=== PATIENT | male | born 1960 | race Caucasian/White ===

== ENCOUNTER 2020-07-13 18:57 | Inpatient (IN) ==
[2020-07-13] MEDS ORDERED: ONDANSETRON 4 MG/2 ML VIAL ONE (19:52)
[2020-07-13] MEDS ORDERED: ONDANSETRON 4 MG/2 ML VIAL IV STA (20:05)
[2020-07-13] MEDS ORDERED: SODIUM CHLORIDE 0.9% 1,000 ML IV STA ×2 (20:05→21:33)
[2020-07-13] MEDS ORDERED: DICYCLOMINE 20 MG/2 ML AMP IM ONE (20:05)
[2020-07-13] MEDS ORDERED: PANTOPRAZOLE 40 MG VIAL IV STA (20:05)
[2020-07-13 20:13] LABS: Basophils # 0.1 10*3/uL (0.0-0.2); Basophils % 0.5 % (0.0-0.8); Eosinophils % 0.1 % (0.00-10.9); Hematocrit 47.5 VOL% (42.0-52.0); Immature Granulocytes % 0.5 %; Immature Granulocytes Absolute 0.05 #; Lymphocytes # 0.6 10*3/uL (1.4-4.0); Lymphocytes % 6.2 % (21.2-54.2); Mean Corpuscular HGB Conc 33.7 GM/DL (32-36); Mean Corpuscular Volume 103.5 FL (87-102); Mean Platelet Volume 9.8 FL (9.6-12.0); Monocytes % 6.6 % (1.7-12.7); Neutrophils % 86.1 % (38.7-73.9); Platelet Count 138 T/CUMM (130-400); Red Blood Count 4.59 MC/CUMM (3.8-5.5); Red Cell Distribution Width 12.7 % (9.3-17.3)
[2020-07-13 20:33] LABS: Alanine Aminotransferase 124 U/L (16-61); Albumin 3.7 G/DL (3.4-5.0); Alkaline Phosphatase 145 U/L (45-117); Amylase 44 U/L (25-115); Aspartate Amino Transferase 153 U/L (0-37); Blood Urea Nitrogen 16 MG/DL (7-18); Calcium 8.6 MG/DL (8.5-10.1); Carbon Dioxide 21 MMOL/L (21-32); Estimated Glom Filtration Rate 93 ML/MIN; Glucose 106 MG/DL (74-106); Osmolality,Calculated 277.5 MOS/KG (273-304); Potassium 4.3 MMOL/L (3.5-5.1); Sodium 139 MMOL/L (136-145); Total Protein 6.9 G/DL (6.4-8.3); Troponin I 0.075 NG/ML (0.00-0.045)
[2020-07-13] MEDS ORDERED: PROMETHAZINE 25 MG/1 ML VIAL ONE (21:26)
[2020-07-13] MEDS ORDERED: VANCOMYCIN INJ 1,000 MG in SODIUM CHLORIDE 0.9% 250 ML IV STA (21:34)
[2020-07-13] MEDS ORDERED: PROMETHAZINE 25 MG/1 ML VIAL IM STA (21:36)
[2020-07-13 22:34] LABS: Hepatitis B Core IgM Quant 0.49 Index; Hepatitis B Surface Ag Quant 0.18 Index; Hepatitis B Surface Ag Result Non-Reactive (NonReactive); Hepatitis C Virus Ab Quant 0.04 Index; Hepatitis C Virus Ab Result Non-Reactive (NonReactive)
[2020-07-13] MEDS ORDERED: LABETALOL 20 MG/4 ML SYRINGE IV STA (22:46)
[2020-07-13] MEDS ORDERED: LABETALOL 20 MG/4 ML SYRINGE IV ONE (22:46)
[2020-07-13 23:16] LABS: Bacteria,Urine Occasional /HPF (Few); Bilirubin,Urine Negative (Negative); Blood, Urine Negative (Negative); Glucose,Urine (UA) Negative (Negative); Granular Casts,Urine 2 /LPF (0-1); Hyaline Casts,Urine 14 /LPF (0-3); Ketones,Urine 20 mg/dL (Negative); Mucus,Urine Occasional /LPF (Occasional); Nitrite,Urine Negative (Negative); Protein,Urine 100 MG/DL; RBC,Urine 2 /HPF (0-4); Renal Epithelial Cells,Urine Occasional /HPF (<1); Squamous Epithelial Cell,Urine Occasional /HPF (0-10); Urine Appearance CLEAR (Clear); Urine Color Yellow (Yellow); Urine Specific Gravity 1.024 (1.001-1.035); Urine Urobilinogen < 2.0 EU/DL (0.2-1.0); WBC,Urine 2 /HPF (0-6)
[2020-07-14] MEDS ORDERED: ENOXAPARIN 100 MG/ML SYRINGE SUBCUT STA (00:03)
[2020-07-14] MEDS ORDERED: FUROSEMIDE 40 MG/4 ML VIAL IV STA (00:15)
[2020-07-14] MEDS ORDERED: MAGNESIUM SULF RIDER 2 GM in PREMIX 1 EACH IV STA (00:19)
[2020-07-14] MEDS ORDERED: ONDANSETRON 4 MG/2 ML VIAL IV PRN (00:47)
[2020-07-14] MEDS ORDERED: PROMETHAZINE INJ 25 MG in SODIUM CHLORIDE 0.9% 50 ML IV PRN (00:48)
[2020-07-14] MEDS ORDERED: ALBUTEROL 2.5 MG/3 ML NEB RESP TX PRN (00:49)
[2020-07-14] MEDS ORDERED: ALBUTEROL/IPRATROPIUM 3 ML NEB RESP TX PRN (00:49)
[2020-07-14 00:50] LABS: Troponin I 0.154 NG/ML (0.00-0.045)
[2020-07-14] MEDS ORDERED: LORazepam 2 MG/1 ML VIAL IV PRN (00:55)
[2020-07-14] MEDS ORDERED: DEXTROSE 50% 25 GM/50 ML VIAL IV PRN (01:35)
[2020-07-14] MEDS ORDERED: GLUCAGON 1 MG VIAL IM PRN (01:35)
[2020-07-14] MEDS ORDERED: MORPHINE 4 MG/1 ML VIAL IV PRN (01:35)
[2020-07-14] MEDS ORDERED: NITROGLYCERIN SL 0.4 MG TABLET SL PRN (01:41)
[2020-07-14] MEDS: ZALEPLON 5 MG CAPSULE PO PRN ×2 (02:24→21:31)
[2020-07-14] MEDS: LEVOFLOXACIN INJ 750 MG in PREMIX 1 EACH IV SCH (02:24)
[2020-07-14 02:59] LABS: Basophils % 0.3 % (0.0-0.8); Hematocrit 45.5 VOL% (42.0-52.0); Hemoglobin 15.5 GM/DL (14.0-18.0); Immature Granulocytes % 0.2 %; Immature Granulocytes Absolute 0.02 #; Lymphocytes # 0.3 10*3/uL (1.4-4.0); Mean Corpuscular HGB Conc 34.1 GM/DL (32-36); Mean Corpuscular Volume 102.5 FL (87-102); Mean Platelet Volume 10.2 FL (9.6-12.0); Monocytes % 7.4 % (1.7-12.7); Neutrophils % 89.1 % (38.7-73.9); Platelet Count 102 T/CUMM (130-400); Red Blood Count 4.44 MC/CUMM (3.8-5.5); Red Cell Distribution Width 12.7 % (9.3-17.3); White Blood Count 9.3 T/CUMM (4-12)
[2020-07-14 03:30] LABS: Albumin 3.2 G/DL (3.4-5.0); Bilirubin,Total 1.8 MG/DL (0.2-1.0); Calcium 7.5 MG/DL (8.5-10.1); Osmolality,Calculated 283.4 MOS/KG (273-304); Potassium 4.2 MMOL/L (3.5-5.1); Risk Ratio 1.57; Thyroid Stimulating Hormone 5.53 uIU/ml (0.358-3.74); Total Protein 6.1 G/DL (6.4-8.3); VLDL CHOLESTEROL 13.6 MG/DL
[2020-07-14 03:37] LABS: Lymphocytes 2 % (20-55); Segmented Neutrophils 93 % (50-85); Total Cells Counted 100
[2020-07-14 03:38] LABS: Macrocytosis 1+; Platelet Estimate Decreased
[2020-07-14] MEDS: LORazepam 2 MG/1 ML VIAL IV PRN (03:43)
[2020-07-14] MEDS: PANTOPRAZOLE 40 MG VIAL IV SCH (09:18)
[2020-07-14] MEDS: METOPROLOL TARTRATE 25 MG TABLET PO SCH ×3 (11:25→21:31)
[2020-07-14] MEDS: ENOXAPARIN 80 MG/0.8 ML SYRINGE SUBCUT SCH (12:30)
[2020-07-14] MEDS: FUROSEMIDE 40 MG/4 ML VIAL IV SCH (15:12)
[2020-07-14] MEDS: chlordiazePOXIDE 25 MG CAPSULE PO SCH ×2 (16:19→21:31)
[2020-07-15] MEDS: LEVOFLOXACIN INJ 750 MG in PREMIX 1 EACH IV SCH (00:51)
[2020-07-15] MEDS: ENOXAPARIN 80 MG/0.8 ML SYRINGE SUBCUT SCH ×2 (00:51→13:15)
[2020-07-15] MEDS: LORazepam 2 MG/1 ML VIAL IV PRN (00:55)
[2020-07-15 06:26] LABS: Basophils % 0.2 % (0.0-0.8); Eosinophils % 0.2 % (0.00-10.9); Hematocrit 48.8 VOL% (42.0-52.0); Hemoglobin 16.1 GM/DL (14.0-18.0); Immature Granulocytes % 0.5 %; Immature Granulocytes Absolute 0.07 #; Lymphocytes # 1.4 10*3/uL (1.4-4.0); Lymphocytes % 10.7 % (21.2-54.2); Mean Corpuscular Volume 105.9 FL (87-102); Mean Platelet Volume 10.2 FL (9.6-12.0); Monocytes % 8.8 % (1.7-12.7); Neutrophils % 79.6 % (38.7-73.9); Platelet Count 108 T/CUMM (130-400); Red Blood Count 4.61 MC/CUMM (3.8-5.5); Red Cell Distribution Width 12.7 % (9.3-17.3); White Blood Count 12.9 T/CUMM (4-12)
[2020-07-15 07:04] LABS: Albumin 3.1 G/DL (3.4-5.0); Calcium 7.9 MG/DL (8.5-10.1); Osmolality,Calculated 283.5 MOS/KG (273-304); Potassium 4.3 MMOL/L (3.5-5.1)
[2020-07-15 07:10] LABS: Free T4 (Free Thyroxine) 1.02 NG/DL (0.76-1.46)
[2020-07-15] MEDS ORDERED: LORazepam 2 MG/1 ML VIAL IV ONE ×2 (08:13→08:20)
[2020-07-15] MEDS ORDERED: FOLIC ACID 0.4 MG TABLET PO SCH (09:00)
[2020-07-15] MEDS ORDERED: THIAMINE 100 MG TABLET PO SCH (09:00)
[2020-07-15] MEDS: FUROSEMIDE 40 MG/4 ML VIAL IV SCH (09:17)
[2020-07-15] MEDS: chlordiazePOXIDE 25 MG CAPSULE PO SCH ×4 (09:17→20:40)
[2020-07-15] MEDS: METOPROLOL TARTRATE 25 MG TABLET PO SCH ×3 (09:18→20:40)
[2020-07-15] MEDS: PANTOPRAZOLE 40 MG VIAL IV SCH (09:18)
[2020-07-15] MEDS: THIAMINE INJ 100 MG, FOLIC ACID INJ 1 MG, MULTIVITAMIN INJ 10 ML in SODIUM CHLORIDE 0.9... IV SCH (09:20)
[2020-07-15] MEDS: DEXMEDETOMIDINE 200 MCG in SODIUM CHLORIDE 0.9% 48 ML IV PRN ×3 (10:00→23:50)
[2020-07-16] MEDS: ENOXAPARIN 80 MG/0.8 ML SYRINGE SUBCUT SCH (00:56)
[2020-07-16] MEDS: METOPROLOL TARTRATE 25 MG TABLET PO SCH ×3 (08:18→20:25)
[2020-07-16] MEDS: THIAMINE INJ 100 MG, FOLIC ACID INJ 1 MG, MULTIVITAMIN INJ 10 ML in SODIUM CHLORIDE 0.9... IV SCH (08:36)
[2020-07-16] MEDS: PANTOPRAZOLE 40 MG VIAL IV SCH (08:37)
[2020-07-16] MEDS: APIXABAN 5 MG TABLET PO SCH ×2 (08:40→20:25)
[2020-07-16] MEDS: ASPIRIN CHEW 81 MG TABLET PO SCH (08:40)
[2020-07-16] MEDS: chlordiazePOXIDE 25 MG CAPSULE PO SCH ×4 (08:40→20:25)
[2020-07-16] MEDS: DEXMEDETOMIDINE 200 MCG in SODIUM CHLORIDE 0.9% 48 ML IV PRN (11:23)
[2020-07-16] MEDS: cefTRIAXone 1,000 MG in SYRINGE 1 EACH IV SCH ×2 (11:59→12:01)
[2020-07-16] MEDS: AZITHROMYCIN 250 MG TABLET PO SCH (13:36)
[2020-07-16 13:38] LABS: Bacteria,Urine Occasional /HPF (Few); Bilirubin,Urine Negative (Negative); Blood, Urine Negative (Negative); Glucose,Urine (UA) Negative (Negative); Ketones,Urine Negative (Negative); Mucus,Urine Occasional /LPF (Occasional); Nitrite,Urine Negative (Negative); Protein,Urine Negative; RBC,Urine <1 /HPF (0-4); Squamous Epithelial Cell,Urine Occasional /HPF (0-10); Urine Appearance CLEAR (Clear); Urine Color Yellow (Yellow); Urine Specific Gravity 1.014 (1.001-1.035); WBC,Urine 1 /HPF (0-6)
[2020-07-17] MEDS: DEXMEDETOMIDINE 200 MCG in SODIUM CHLORIDE 0.9% 48 ML IV PRN (04:45)
[2020-07-17 05:08] LABS: Basophils % 0.3 % (0.0-0.8); Eosinophils # 0.2 10*3/uL (0.0-0.87); Eosinophils % 2.1 % (0.00-10.9); Hematocrit 42.9 VOL% (42.0-52.0); Hemoglobin 14.1 GM/DL (14.0-18.0); Immature Granulocytes % 0.4 %; Immature Granulocytes Absolute 0.03 #; Lymphocytes # 0.9 10*3/uL (1.4-4.0); Mean Corpuscular HGB Conc 32.9 GM/DL (32-36); Mean Corpuscular Volume 108.1 FL (87-102); Mean Platelet Volume 10.3 FL (9.6-12.0); Monocytes % 9.5 % (1.7-12.7); Neutrophils % 75.7 % (38.7-73.9); Platelet Count 73 T/CUMM (130-400); Red Blood Count 3.97 MC/CUMM (3.8-5.5); Red Cell Distribution Width 12.5 % (9.3-17.3); White Blood Count 7.6 T/CUMM (4-12)
[2020-07-17 05:45] LABS: Albumin 2.2 G/DL (3.4-5.0); Bilirubin,Total 0.9 MG/DL (0.2-1.0); Calcium 7.2 MG/DL (8.5-10.1); Osmolality,Calculated 285.1 MOS/KG (273-304); Potassium 3.8 MMOL/L (3.5-5.1)
[2020-07-17 06:15] LABS: Platelet Estimate Decreased
[2020-07-17 06:16] LABS: Anisocytosis 1+; Macrocytosis 1+
[2020-07-17] MEDS ORDERED: SODIUM CHLORIDE 0.9% 1,000 ML IV ONE (08:00)
[2020-07-17] MEDS ORDERED: DEXMEDETOMIDINE 400 MCG in SODIUM CHLORIDE 0.9% 96 ML IV PRN (08:10)
[2020-07-17] MEDS: PANTOPRAZOLE 40 MG TABLET PO SCH (08:37)
[2020-07-17] MEDS: APIXABAN 5 MG TABLET PO SCH ×2 (08:37→20:23)
[2020-07-17] MEDS: METOPROLOL TARTRATE 25 MG TABLET PO SCH ×3 (08:37→20:23)
[2020-07-17] MEDS: ASPIRIN CHEW 81 MG TABLET PO SCH (08:37)
[2020-07-17] MEDS: chlordiazePOXIDE 25 MG CAPSULE PO SCH ×4 (08:37→20:23)
[2020-07-17] MEDS: AZITHROMYCIN 250 MG TABLET PO SCH (08:37)
[2020-07-17] MEDS: THIAMINE INJ 100 MG, FOLIC ACID INJ 1 MG, MULTIVITAMIN INJ 10 ML in SODIUM CHLORIDE 0.9... IV SCH (09:18)
[2020-07-17] MEDS: LACTULOSE 20 GM/30 ML UDCUP PO SCH ×2 (09:18→20:23)
[2020-07-17] MEDS: cefTRIAXone 1,000 MG in SYRINGE 1 EACH IV SCH (12:35)
[2020-07-17] MEDS ORDERED: NICOTINE 21 MG/24 HR PATCH TRANSDERM PRN (20:59)
[2020-07-18 04:45] LABS: Basophils % 0.3 % (0.0-0.8); Eosinophils # 0.1 10*3/uL (0.0-0.87); Hematocrit 41.7 VOL% (42.0-52.0); Hemoglobin 14.4 GM/DL (14.0-18.0); Immature Granulocytes % 0.3 %; Immature Granulocytes Absolute 0.02 #; Lymphocytes # 0.8 10*3/uL (1.4-4.0); Lymphocytes % 10.9 % (21.2-54.2); Mean Corpuscular HGB Conc 34.5 GM/DL (32-36); Mean Corpuscular Volume 101.5 FL (87-102); Mean Platelet Volume 10.1 FL (9.6-12.0); Monocytes % 10.2 % (1.7-12.7); Neutrophils % 77.3 % (38.7-73.9); Platelet Count 94 T/CUMM (130-400); Red Blood Count 4.11 MC/CUMM (3.8-5.5); Red Cell Distribution Width 12.6 % (9.3-17.3); White Blood Count 7.1 T/CUMM (4-12)
[2020-07-18 05:02] LABS: Albumin 2.4 G/DL (3.4-5.0); Calcium 7.8 MG/DL (8.5-10.1); Osmolality,Calculated 280.4 MOS/KG (273-304); Potassium 3.6 MMOL/L (3.5-5.1); Total Protein 5.3 G/DL (6.4-8.3)
[2020-07-18 05:21] LABS: Folate 16.5 NG/ML (5.38-24.0); Vitamin B12 > 2000 PG/ML (211-911)
[2020-07-18 07:53] LABS: HIV Antigen/Antibody Result Nonreactive (Nonreactive); Hepatitis B Surface Ag Quant 0.24 Index; Hepatitis B Surface Ag Result Non-Reactive (NonReactive); Hepatitis C Virus Ab Quant 0.06 Index; Hepatitis C Virus Ab Result Non-Reactive (NonReactive)
[2020-07-18 08:48] LABS: Macrocytosis 1+; Platelet Estimate Decreased
[2020-07-18] MEDS: AZITHROMYCIN 250 MG TABLET PO SCH (08:49)
[2020-07-18] MEDS: ASPIRIN CHEW 81 MG TABLET PO SCH (08:49)
[2020-07-18] MEDS: APIXABAN 5 MG TABLET PO SCH ×2 (08:49→20:06)
[2020-07-18] MEDS: LACTULOSE 20 GM/30 ML UDCUP PO SCH ×3 (08:49→17:50)
[2020-07-18] MEDS: chlordiazePOXIDE 25 MG CAPSULE PO SCH ×4 (08:49→20:06)
[2020-07-18] MEDS: THIAMINE INJ 100 MG, FOLIC ACID INJ 1 MG, MULTIVITAMIN INJ 10 ML in SODIUM CHLORIDE 0.9... IV SCH (09:27)
[2020-07-18] MEDS: PANTOPRAZOLE 40 MG TABLET PO SCH (09:27)
[2020-07-18] MEDS: METOPROLOL TARTRATE 25 MG TABLET PO SCH ×3 (10:29→20:06)
[2020-07-18] MEDS: cefTRIAXone 1,000 MG in SYRINGE 1 EACH IV SCH (12:33)
[2020-07-18] MEDS: LORazepam 2 MG/1 ML VIAL IV PRN (19:31)
[2020-07-19] MEDS: LACTULOSE 20 GM/30 ML UDCUP PO SCH ×3 (03:45→18:33)
[2020-07-19 04:26] LABS: Basophils % 0.6 % (0.0-0.8); Eosinophils # 0.2 10*3/uL (0.0-0.87); Eosinophils % 2.8 % (0.00-10.9); Hematocrit 40.5 VOL% (42.0-52.0); Hemoglobin 13.7 GM/DL (14.0-18.0); Immature Granulocytes % 0.4 %; Immature Granulocytes Absolute 0.02 #; Lymphocytes # 0.9 10*3/uL (1.4-4.0); Lymphocytes % 16.9 % (21.2-54.2); Mean Corpuscular HGB Conc 33.8 GM/DL (32-36); Mean Corpuscular Volume 103.6 FL (87-102); Mean Platelet Volume 10.1 FL (9.6-12.0); Monocytes % 11.4 % (1.7-12.7); Neutrophils % 67.9 % (38.7-73.9); Platelet Count 83 T/CUMM (130-400); Red Blood Count 3.91 MC/CUMM (3.8-5.5); Red Cell Distribution Width 12.8 % (9.3-17.3); White Blood Count 5.3 T/CUMM (4-12)
[2020-07-19 04:46] LABS: Platelet Estimate Decreased
[2020-07-19 04:52] LABS: Albumin 2.1 G/DL (3.4-5.0); Bilirubin,Total 0.6 MG/DL (0.2-1.0); Calcium 7.7 MG/DL (8.5-10.1); Potassium 3.5 MMOL/L (3.5-5.1); Total Protein 4.3 G/DL (6.4-8.3)
[2020-07-19] MEDS ORDERED: FUROSEMIDE 40 MG/4 ML VIAL IV ONE (09:05)
[2020-07-19] MEDS: AZITHROMYCIN 250 MG TABLET PO SCH (09:17)
[2020-07-19] MEDS: PANTOPRAZOLE 40 MG TABLET PO SCH (09:18)
[2020-07-19] MEDS: ASPIRIN CHEW 81 MG TABLET PO SCH (09:18)
[2020-07-19] MEDS: chlordiazePOXIDE 25 MG CAPSULE PO SCH ×4 (09:18→21:34)
[2020-07-19] MEDS: FUROSEMIDE 40 MG/4 ML VIAL IV SCH (09:23)
[2020-07-19] MEDS: METOPROLOL TARTRATE 25 MG TABLET PO SCH ×3 (10:28→21:34)
[2020-07-19] MEDS: APIXABAN 5 MG TABLET PO SCH (10:29)
[2020-07-19] MEDS: THIAMINE INJ 100 MG, FOLIC ACID INJ 1 MG, MULTIVITAMIN INJ 10 ML in SODIUM CHLORIDE 0.9... IV SCH (10:39)
[2020-07-19] MEDS: cefTRIAXone 1,000 MG in SYRINGE 1 EACH IV SCH (11:30)
[2020-07-20] MEDS: LACTULOSE 20 GM/30 ML UDCUP PO SCH ×3 (04:11→16:51)
[2020-07-20 04:50] LABS: Basophils % 0.5 % (0.0-0.8); Eosinophils # 0.1 10*3/uL (0.0-0.87); Eosinophils % 1.3 % (0.00-10.9); Hematocrit 44.4 VOL% (42.0-52.0); Hemoglobin 14.9 GM/DL (14.0-18.0); Immature Granulocytes % 0.5 %; Immature Granulocytes Absolute 0.04 #; Lymphocytes # 1.1 10*3/uL (1.4-4.0); Lymphocytes % 14.7 % (21.2-54.2); Mean Corpuscular HGB Conc 33.6 GM/DL (32-36); Mean Platelet Volume 9.9 FL (9.6-12.0); Monocytes % 12.7 % (1.7-12.7); Neutrophils % 70.3 % (38.7-73.9); Platelet Count 106 T/CUMM (130-400); Red Blood Count 4.27 MC/CUMM (3.8-5.5); Red Cell Distribution Width 12.7 % (9.3-17.3); White Blood Count 7.4 T/CUMM (4-12)
[2020-07-20 04:52] LABS: Calcium 8.3 MG/DL (8.5-10.1); Potassium 3.2 MMOL/L (3.5-5.1)
[2020-07-20] MEDS ORDERED: MAGNESIUM SULF RIDER 2 GM in PREMIX 1 EACH IV ONE (08:50)
[2020-07-20] MEDS: PANTOPRAZOLE 40 MG TABLET PO SCH (09:13)
[2020-07-20] MEDS: MULTIVITAMIN (CENTRUM) TABLET PO SCH (09:13)
[2020-07-20] MEDS: METOPROLOL TARTRATE 25 MG TABLET PO SCH (09:13)
[2020-07-20] MEDS: ASPIRIN CHEW 81 MG TABLET PO SCH (09:13)
[2020-07-20] MEDS: POTASSIUM CHLORIDE 20 MEQ TABLET PO PRN ×4 (09:13→20:48)
[2020-07-20] MEDS: AZITHROMYCIN 250 MG TABLET PO SCH (09:13)
[2020-07-20] MEDS: chlordiazePOXIDE 25 MG CAPSULE PO SCH ×4 (09:23→20:48)
[2020-07-20] MEDS: FUROSEMIDE 40 MG/4 ML VIAL IV SCH (09:24)
[2020-07-20] MEDS: cefTRIAXone 1,000 MG in SYRINGE 1 EACH IV SCH (12:52)
[2020-07-20] MEDS ORDERED: POTASSIUM CHLORIDE RIDER 10 MEQ in PREMIX 1 EACH IV PRN (14:07)
[2020-07-20] MEDS ORDERED: MAGNESIUM SULF RIDER 2 GM in PREMIX 1 EACH IV PRN (14:07)
[2020-07-20] MEDS ORDERED: METOPROLOL SUCCINATE XL 25 MG TABLET PO ONE (14:20)
[2020-07-20] MEDS: SACUBITRIL/VALSARTAN 49-51 MG TABLET PO SCH (16:40)
[2020-07-20] MEDS: SPIRONOLACTONE 25 MG TABLET PO SCH (16:43)
[2020-07-20] MEDS: LORazepam 2 MG/1 ML VIAL IV PRN (18:15)
[2020-07-21] MEDS: LACTULOSE 20 GM/30 ML UDCUP PO SCH ×3 (00:42→17:36)
[2020-07-21] MEDS: LORazepam 2 MG/1 ML VIAL IV PRN (02:13)
[2020-07-21] MEDS ORDERED: DIAZEPAM 5 MG TABLET PO ONE (06:00)
[2020-07-21] MEDS ORDERED: diphenhydrAMINE CAP 50 MG CAPSULE PO ONE (06:00)
[2020-07-21 06:20] LABS: Basophils # 0.1 10*3/uL (0.0-0.2); Basophils % 0.7 % (0.0-0.8); Eosinophils # 0.1 10*3/uL (0.0-0.87); Eosinophils % 1.3 % (0.00-10.9); Hematocrit 42.3 VOL% (42.0-52.0); Hemoglobin 14.7 GM/DL (14.0-18.0); Immature Granulocytes % 0.4 %; Immature Granulocytes Absolute 0.03 #; Lymphocytes # 1.1 10*3/uL (1.4-4.0); Lymphocytes % 16.5 % (21.2-54.2); Mean Corpuscular HGB Conc 34.8 GM/DL (32-36); Mean Corpuscular Volume 101.2 FL (87-102); Mean Platelet Volume 9.4 FL (9.6-12.0); Monocytes % 14.1 % (1.7-12.7); Platelet Count 128 T/CUMM (130-400); Red Blood Count 4.18 MC/CUMM (3.8-5.5); Red Cell Distribution Width 12.5 % (9.3-17.3); White Blood Count 6.7 T/CUMM (4-12)
[2020-07-21] MEDS: HALOPERIDOL 5 MG/ML AMP IV PRN (06:25)
[2020-07-21 06:36] LABS: Calcium 8.2 MG/DL (8.5-10.1); Osmolality,Calculated 285.7 MOS/KG (273-304); Potassium 3.5 MMOL/L (3.5-5.1)
[2020-07-21] MEDS ORDERED: METOPROLOL SUCCINATE XL 25 MG TABLET PO SCH (09:00)
[2020-07-21] MEDS: FUROSEMIDE 40 MG/4 ML VIAL IV SCH (09:09)
[2020-07-21] MEDS: AZITHROMYCIN 250 MG TABLET PO SCH (09:10)
[2020-07-21] MEDS: SACUBITRIL/VALSARTAN 49-51 MG TABLET PO SCH (09:11)
[2020-07-21] MEDS: PANTOPRAZOLE 40 MG TABLET PO SCH (09:11)
[2020-07-21] MEDS: ASPIRIN CHEW 81 MG TABLET PO SCH (09:11)
[2020-07-21] MEDS: chlordiazePOXIDE 25 MG CAPSULE PO SCH ×4 (09:11→20:36)
[2020-07-21] MEDS: SPIRONOLACTONE 25 MG TABLET PO SCH (09:12)
[2020-07-21] MEDS: MULTIVITAMIN (CENTRUM) TABLET PO SCH (10:19)
[2020-07-21] MEDS ORDERED: LIDOCAINE 1% 20 ML VIAL ONE (10:43)
[2020-07-21] MEDS ORDERED: MIDAZOLAM 2 MG/2 ML VIAL ONE (10:44)
[2020-07-21] MEDS ORDERED: HYDROmorphone 2 MG/1 ML VIAL ONE (10:44)
[2020-07-21] MEDS ORDERED: HEPARIN 5,000 UNIT/1 ML VIAL ONE (11:25)
[2020-07-21] MEDS: cefTRIAXone 1,000 MG in SYRINGE 1 EACH IV SCH (12:40)
[2020-07-22] MEDS: METOPROLOL SUCCINATE XL 25 MG TABLET PO SCH ×3 (00:35→21:17)
[2020-07-22] MEDS: LACTULOSE 20 GM/30 ML UDCUP PO SCH ×3 (01:17→17:21)
[2020-07-22 05:47] LABS: Basophils # 0.1 10*3/uL (0.0-0.2); Basophils % 0.8 % (0.0-0.8); Eosinophils # 0.2 10*3/uL (0.0-0.87); Eosinophils % 2.5 % (0.00-10.9); Hematocrit 43.9 VOL% (42.0-52.0); Hemoglobin 14.7 GM/DL (14.0-18.0); Immature Granulocytes % 0.5 %; Immature Granulocytes Absolute 0.04 #; Lymphocytes # 1.1 10*3/uL (1.4-4.0); Lymphocytes % 15.6 % (21.2-54.2); Mean Corpuscular HGB Conc 33.5 GM/DL (32-36); Mean Corpuscular Volume 102.3 FL (87-102); Mean Platelet Volume 8.8 FL (9.6-12.0); Monocytes % 14.9 % (1.7-12.7); Neutrophils % 65.7 % (38.7-73.9); Platelet Count 140 T/CUMM (130-400); Red Blood Count 4.29 MC/CUMM (3.8-5.5); Red Cell Distribution Width 12.3 % (9.3-17.3); White Blood Count 7.3 T/CUMM (4-12)
[2020-07-22 06:06] LABS: Calcium 8.2 MG/DL (8.5-10.1); Osmolality,Calculated 284.8 MOS/KG (273-304)
[2020-07-22] MEDS: MULTIVITAMIN (CENTRUM) TABLET PO SCH (09:03)
[2020-07-22] MEDS: SACUBITRIL/VALSARTAN 49-51 MG TABLET PO SCH ×2 (09:03→21:17)
[2020-07-22] MEDS: ASPIRIN CHEW 81 MG TABLET PO SCH (09:03)
[2020-07-22] MEDS: AZITHROMYCIN 250 MG TABLET PO SCH (09:03)
[2020-07-22] MEDS: FUROSEMIDE 40 MG/4 ML VIAL IV SCH (09:03)
[2020-07-22] MEDS: PANTOPRAZOLE 40 MG TABLET PO SCH (09:04)
[2020-07-22] MEDS: SPIRONOLACTONE 25 MG TABLET PO SCH (09:04)
[2020-07-22] MEDS: chlordiazePOXIDE 25 MG CAPSULE PO SCH ×3 (09:05→21:17)
[2020-07-22] MEDS: APIXABAN 5 MG TABLET PO SCH ×2 (10:16→21:18)
[2020-07-22] MEDS: cefTRIAXone 1,000 MG in SYRINGE 1 EACH IV SCH (11:38)
[2020-07-23] MEDS: LACTULOSE 20 GM/30 ML UDCUP PO SCH ×3 (00:59→18:10)
[2020-07-23 05:46] LABS: Basophils # 0.1 10*3/uL (0.0-0.2); Basophils % 0.7 % (0.0-0.8); Eosinophils # 0.1 10*3/uL (0.0-0.87); Eosinophils % 1.9 % (0.00-10.9); Hemoglobin 15.4 GM/DL (14.0-18.0); Immature Granulocytes % 0.3 %; Immature Granulocytes Absolute 0.02 #; Lymphocytes # 1.4 10*3/uL (1.4-4.0); Lymphocytes % 18.7 % (21.2-54.2); Mean Corpuscular HGB Conc 34.2 GM/DL (32-36); Mean Corpuscular Volume 100.9 FL (87-102); Mean Platelet Volume 9.2 FL (9.6-12.0); Neutrophils % 65.4 % (38.7-73.9); Platelet Count 152 T/CUMM (130-400); Red Blood Count 4.46 MC/CUMM (3.8-5.5); Red Cell Distribution Width 12.3 % (9.3-17.3); White Blood Count 7.4 T/CUMM (4-12)
[2020-07-23 06:12] LABS: Calcium 8.6 MG/DL (8.5-10.1); Potassium 3.2 MMOL/L (3.5-5.1)
[2020-07-23 06:15] LABS: Albumin 2.7 G/DL (3.4-5.0); Bilirubin,Total 0.8 MG/DL (0.2-1.0); Calcium 8.6 MG/DL (8.5-10.1); Osmolality,Calculated 281.1 MOS/KG (273-304); Potassium 3.2 MMOL/L (3.5-5.1)
[2020-07-23] MEDS ORDERED: APIXABAN 5 MG TABLET PO SCH (09:00)
[2020-07-23] MEDS ORDERED: POTASSIUM CHLORIDE 20 MEQ TABLET PO ONE (09:20)
[2020-07-23] MEDS: SPIRONOLACTONE 25 MG TABLET PO SCH (09:35)
[2020-07-23] MEDS: ASPIRIN CHEW 81 MG TABLET PO SCH (09:36)
[2020-07-23] MEDS: APIXABAN 5 MG TABLET PO SCH ×2 (09:36→21:00)
[2020-07-23] MEDS: SACUBITRIL/VALSARTAN 49-51 MG TABLET PO SCH ×2 (09:36→20:59)
[2020-07-23] MEDS: MULTIVITAMIN (CENTRUM) TABLET PO SCH (09:36)
[2020-07-23] MEDS: AZITHROMYCIN 250 MG TABLET PO SCH (09:37)
[2020-07-23] MEDS: METOPROLOL SUCCINATE XL 25 MG TABLET PO SCH ×2 (09:37→21:00)
[2020-07-23] MEDS: PANTOPRAZOLE 40 MG TABLET PO SCH (09:37)
[2020-07-23] MEDS: chlordiazePOXIDE 25 MG CAPSULE PO SCH ×2 (09:38→20:59)
[2020-07-23] MEDS: FUROSEMIDE 40 MG/4 ML VIAL IV SCH (09:42)
[2020-07-23] MEDS: cefTRIAXone 1,000 MG in SYRINGE 1 EACH IV SCH (12:57)
[2020-07-23] MEDS ORDERED: NAPROXEN 500 MG TABLET PO ONE (15:00)
[2020-07-23] MEDS: HALOPERIDOL 5 MG/ML AMP IV PRN (20:03)
[2020-07-23] MEDS: NAPROXEN 250 MG TABLET PO SCH (21:00)
[2020-07-23] MEDS ORDERED: ZIPRASIDONE 20 MG/1 ML VIAL IM ONE (23:00)
[2020-07-24] MEDS: LACTULOSE 20 GM/30 ML UDCUP PO SCH ×3 (01:49→16:56)
[2020-07-24 06:58] LABS: Basophils # 0.1 10*3/uL (0.0-0.2); Basophils % 1.3 % (0.0-0.8); Eosinophils # 0.2 10*3/uL (0.0-0.87); Eosinophils % 2.9 % (0.00-10.9); Hematocrit 43.3 VOL% (42.0-52.0); Hemoglobin 14.7 GM/DL (14.0-18.0); Immature Granulocytes % 0.5 %; Immature Granulocytes Absolute 0.03 #; Lymphocytes # 1.3 10*3/uL (1.4-4.0); Lymphocytes % 23.5 % (21.2-54.2); Mean Corpuscular HGB Conc 33.9 GM/DL (32-36); Mean Corpuscular Volume 102.9 FL (87-102); Monocytes % 11.8 % (1.7-12.7); Platelet Count 147 T/CUMM (130-400); Red Blood Count 4.21 MC/CUMM (3.8-5.5); Red Cell Distribution Width 12.4 % (9.3-17.3); White Blood Count 5.6 T/CUMM (4-12)
[2020-07-24 07:19] LABS: Calcium 8.6 MG/DL (8.5-10.1); Potassium 3.2 MMOL/L (3.5-5.1)
[2020-07-24] MEDS: ASPIRIN CHEW 81 MG TABLET PO SCH (10:14)
[2020-07-24] MEDS: FUROSEMIDE 40 MG TABLET PO SCH (10:15)
[2020-07-24] MEDS: SACUBITRIL/VALSARTAN 49-51 MG TABLET PO SCH ×2 (10:15→20:29)
[2020-07-24] MEDS: MULTIVITAMIN (CENTRUM) TABLET PO SCH (10:15)
[2020-07-24] MEDS: APIXABAN 5 MG TABLET PO SCH ×2 (10:16→20:29)
[2020-07-24] MEDS: SPIRONOLACTONE 25 MG TABLET PO SCH (10:16)
[2020-07-24] MEDS: PANTOPRAZOLE 40 MG TABLET PO SCH (10:17)
[2020-07-24] MEDS: METOPROLOL SUCCINATE XL 25 MG TABLET PO SCH ×2 (10:23→20:29)
[2020-07-24] MEDS: NAPROXEN 250 MG TABLET PO SCH ×2 (10:24→20:29)
[2020-07-24] MEDS: chlordiazePOXIDE 25 MG CAPSULE PO SCH (10:34)
[2020-07-24] MEDS ORDERED: POTASSIUM CHLORIDE 20 MEQ TABLET PO ONE (11:00)
[2020-07-24] MEDS: POTASSIUM CHLORIDE 20 MEQ TABLET PO PRN ×2 (15:12→18:39)
[2020-07-25] MEDS: LACTULOSE 20 GM/30 ML UDCUP PO SCH ×3 (01:45→16:33)
[2020-07-25 06:10] LABS: Calcium 8.8 MG/DL (8.5-10.1); Potassium 4.7 MMOL/L (3.5-5.1)
[2020-07-25] MEDS: APIXABAN 5 MG TABLET PO SCH ×2 (09:00→20:30)
[2020-07-25] MEDS ORDERED: chlordiazePOXIDE 25 MG CAPSULE PO SCH (09:00)
[2020-07-25] MEDS: PANTOPRAZOLE 40 MG TABLET PO SCH (09:00)
[2020-07-25] MEDS: SPIRONOLACTONE 25 MG TABLET PO SCH (09:01)
[2020-07-25] MEDS: SACUBITRIL/VALSARTAN 49-51 MG TABLET PO SCH ×2 (09:01→20:29)
[2020-07-25] MEDS: FUROSEMIDE 40 MG TABLET PO SCH (09:01)
[2020-07-25] MEDS: MULTIVITAMIN (CENTRUM) TABLET PO SCH (09:02)
[2020-07-25] MEDS: NAPROXEN 250 MG TABLET PO SCH ×2 (09:02→20:29)
[2020-07-25] MEDS: ASPIRIN CHEW 81 MG TABLET PO SCH (09:02)
[2020-07-25] MEDS: METOPROLOL SUCCINATE XL 25 MG TABLET PO SCH ×2 (09:02→20:29)
[2020-07-26] MEDS: LACTULOSE 20 GM/30 ML UDCUP PO SCH ×3 (02:28→17:00)
[2020-07-26 06:51] LABS: Calcium 9.1 MG/DL (8.5-10.1); Potassium 3.9 MMOL/L (3.5-5.1)
[2020-07-26] MEDS: FUROSEMIDE 40 MG TABLET PO SCH (08:16)
[2020-07-26] MEDS: MULTIVITAMIN (CENTRUM) TABLET PO SCH (08:16)
[2020-07-26] MEDS: METOPROLOL SUCCINATE XL 25 MG TABLET PO SCH ×2 (08:16→20:25)
[2020-07-26] MEDS: APIXABAN 5 MG TABLET PO SCH ×2 (08:16→20:24)
[2020-07-26] MEDS: NAPROXEN 250 MG TABLET PO SCH ×2 (08:17→20:24)
[2020-07-26] MEDS: SACUBITRIL/VALSARTAN 49-51 MG TABLET PO SCH ×2 (08:17→20:25)
[2020-07-26] MEDS: ASPIRIN CHEW 81 MG TABLET PO SCH (08:17)
[2020-07-26] MEDS: chlordiazePOXIDE 10 MG CAPSULE PO SCH (08:17)
[2020-07-26] MEDS: PANTOPRAZOLE 40 MG TABLET PO SCH (08:17)
[2020-07-26] MEDS: SPIRONOLACTONE 25 MG TABLET PO SCH (08:22)
[2020-07-27] MEDS: LACTULOSE 20 GM/30 ML UDCUP PO SCH ×2 (01:29→09:23)
[2020-07-27] MEDS: ASPIRIN CHEW 81 MG TABLET PO SCH (08:14)
[2020-07-27] MEDS: NAPROXEN 250 MG TABLET PO SCH (08:14)
[2020-07-27] MEDS: MULTIVITAMIN (CENTRUM) TABLET PO SCH (08:14)
[2020-07-27] MEDS: METOPROLOL SUCCINATE XL 25 MG TABLET PO SCH (08:14)
[2020-07-27] MEDS: chlordiazePOXIDE 10 MG CAPSULE PO SCH (08:14)
[2020-07-27] MEDS: SACUBITRIL/VALSARTAN 49-51 MG TABLET PO SCH (08:14)
[2020-07-27] MEDS: PANTOPRAZOLE 40 MG TABLET PO SCH (08:14)
[2020-07-27] MEDS: FUROSEMIDE 40 MG TABLET PO SCH (08:15)
[2020-07-27] MEDS: APIXABAN 5 MG TABLET PO SCH (08:15)
[2020-07-27] MEDS: SPIRONOLACTONE 25 MG TABLET PO SCH (08:15)
[2020-07-27 12:16] VITALS: BP 122/89
== END 2020-07-27 14:08 | disposition home or self-care (01) | DRG 175 ==
LOC: N.EDINP 18:57 → N.ED 18:57 → N.EDINP 07-14 01:40 → N.TELES 07-14 01:55 → SUATTDRO 07-14 11:16 → N.CC 07-15 08:07 → N.TELEN 07-20 15:08
PROVIDERS: ADMIT Family Medicine; ATTEND Internal Medicine